=== PATIENT | male | born 1940 | race Caucasian/White ===

== ENCOUNTER 2017-09-11 14:01 | Emergency (ER) | payer MEDICARE, OTHER ==
[~2017-09-11] VITALS: Ht 172.7 cm; Wt 59.0 kg
[~2017-09-11 14:01] MED LIST: NAPR-56 PO; NOR5T PO; NORCO10T PO; OMEP-84 PO; PRAV10TA38 PO
[2017-09-11 14:14] VITALS: BP 151/78
[2017-09-11] MEDS ORDERED: LIDOcaine 1.5% w/epinephrine 1:200,000 5ml ampul IJ ONE (14:30)
== END 2017-09-11 16:15 | disposition home or self-care (01) ==
LOC: ER 14:03
DX: S01.81XA Laceration without foreign body of other part of head, initial encounter (principal); I10 Essential (primary) hypertension; Z79.899 Other long term (current) drug therapy; Z90.49 Acquired absence of other specified parts of digestive tract; W22.8XXA Striking against or struck by other objects, initial encounter; Y93.89 Activity, other specified; Y92.89 Other specified places as the place of occurrence of the external cause; Y99.8 Other external cause status
CPT/HCPCS: 12013; 70450; 99284; A6258; A6449; J3490

== ENCOUNTER 2018-06-24 17:01 | Emergency (ER) | payer MEDICARE, OTHER ==
[~2018-06-24] VITALS: Ht 172.7 cm; Wt 75.5 kg
[2018-06-24 17:55] VITALS: BP 194/101
[2018-06-24] MEDS ORDERED: LIDOcaine 1% 30ml preserv. free vial IJ ONE (19:45)
[2018-06-24] MEDS ORDERED: CEPH250T PO (21:04)
[2018-06-24] MEDS ORDERED: bacitracin 15gm ointment TP ONE (21:25)
== END 2018-06-24 21:48 | disposition home or self-care (01) ==
LOC: ER 17:01
DX: S62.662B Nondisplaced fracture of distal phalanx of right middle finger, initial encounter for open fracture (principal); I10 Essential (primary) hypertension; Z90.49 Acquired absence of other specified parts of digestive tract; W45.8XXA Other foreign body or object entering through skin, initial encounter; Y93.89 Activity, other specified; Y92.89 Other specified places as the place of occurrence of the external cause; Y99.8 Other external cause status
CPT/HCPCS: 29130; 73140; 99283; J3490